=== PATIENT | male | born 1955 ===

== ENCOUNTER 2025-04-10 16:06 | Inpatient (IN) | payer OTHER, MEDICARE ==
[~2025-04-10] VITALS: Ht 170.2 cm; Wt 59.0 kg
[2025-04-10] MEDS ORDERED: MethylPREDNISolone Sod Succ 125 MG Vial IV ONE (16:10)
[2025-04-10] MEDS ORDERED: Albuterol 2.5 MG/3 ML VIAL INH SCH (16:10)
[2025-04-10 16:22] LABS: BASOPHILS ABSOLUTE AUTO 0.08 K/mm3 (0.00-0.23); BASOPHILS PERCENT AUTO 1 % (0-2); EOSINOPHILS PERCENT AUTO 0 % (0-6); Hematocrit 44.7 % (37.0-53.0); Hemoglobin 13.9 g/dL (13.5-17.5); IMMATURE GRAN ABSOLUTE AUTO 0.04 K/mm3 (0.00-0.10); IMMATURE GRAN PERCENT AUTO 0 % (0-1); LYMPHOCYTES ABSOLUTE AUTO 1.21 K/mm3 (0.84-5.20); LYMPHOCYTES PERCENT AUTO 10 % (21-46); MONOCYTES ABSOLUTE AUTO 0.84 K/mm3 (0.16-1.47); MONOCYTES PERCENT AUTO 7 % (4-13); Mean Corpuscular HGB 29.2 pg (26.0-34.0); Mean Corpuscular HGB Conc 31.1 g/dL (31.5-36.5); Mean Corpuscular Volume 94 fL (80-100); Mean Platelet Volume 9.6 fL (9.1-12.4); NEUTROPHILS ABSOLUTE AUTO 9.55 K/mm3 (1.96-9.15); NEUTROPHILS PERCENT AUTO 82 % (41-73); Platelet Count 234 K/mm3 (150-400); RDW Coefficient Variation 12.2 % (11.7-14.2); RDW Standard Deviation 42.3 fL (35.1-46.3); Red Blood Cell Count 4.76 M/mm3 (4.30-5.90); White Blood Cell Count 11.72 K/mm3 (4.00-11.30)
[2025-04-10] MEDS ORDERED: NS 1,000 ML IV ONE (16:32)
[2025-04-10] MEDS ORDERED: NS 1,000 ML IV SCH (16:35)
[2025-04-10 17:44] LABS: Base Excess Venous 8.2 mmol/L; Bicarbonate Venous 28.2 mmol/L (24.0-30.0); PCO2 Venous 98.6 mmHg (38-42); pH Blood Venous 7.18 (7.34-7.37)
[2025-04-10 19:00] LABS: Albumin, Blood 3.7 g/dL (3.4-5.0); Bilirubin, Total 0.4 mg/dL (0.1-1.0); Bun/Creatinine Ratio 28.2 (12.0-20.0); Calcium, Blood 8.5 mg/dL (8.5-10.1); Creatinine, Blood 1.03 mg/dL (0.60-1.20); Globulin, Blood 3.6 g/dL (2.2-4.0); Potassium, Blood 4.7 mmol/L (3.5-5.5); Total Protein, Blood 7.3 g/dL (6.4-8.2)
[2025-04-10] MEDS ORDERED: Albuterol 2.5 MG/3 ML VIAL INH PRN (19:00)
[2025-04-10] MEDS ORDERED: Ipratropium/Albuterol SulF 2.5-0.5MG/3 ML Amp INH SCH (19:00)
[2025-04-10] MEDS ORDERED: Ondansetron HCl 2 MG / ML 2ML Vial IV PRN (19:00)
[2025-04-10] MEDS ORDERED: Azithromycin 500 MG in NS 250 ML IV SCH (20:00)
[2025-04-10 20:18] LABS: Base Excess Venous 12.1 mmol/L; Bicarbonate Venous 31.6 mmol/L (24.0-30.0); PCO2 Venous 79.5 mmHg (38-42)
[2025-04-10 21:53] VITALS: BP 100/84
[2025-04-10 23:44] VITALS: BP 95/68
[2025-04-11] MEDS ORDERED: MethylPREDNISolone Sod Succ 125 MG Vial IV SCH
[2025-04-11 04:14] LABS: Base Excess Venous 11.9 mmol/L; Bicarbonate Venous 33.1 mmol/L (24.0-30.0); PCO2 Venous 62.8 mmHg (38-42); pH Blood Venous 7.38 (7.34-7.37)
[2025-04-11 04:41] LABS: Hematocrit 42.9 % (37.0-53.0); Hemoglobin 13.4 g/dL (13.5-17.5); Mean Corpuscular HGB 29.1 pg (26.0-34.0); Mean Corpuscular HGB Conc 31.2 g/dL (31.5-36.5); Mean Corpuscular Volume 93 fL (80-100); Platelet Count 199 K/mm3 (150-400); RDW Coefficient Variation 12.5 % (11.7-14.2); RDW Standard Deviation 42.8 fL (35.1-46.3); White Blood Cell Count 4.82 K/mm3 (4.00-11.30)
[2025-04-11 05:00] VITALS: BP 135/95
--- NOTE | 2025-04-11 06:34 | NUR ---
SHIFT SUMMARY: PATIENT ARRIVED FROM THE ED VIA STRETCHER AT 2100. PATIENT WAS TRAVELING FROM [place] WHEN HE RAN OUT OF O2 AND PASSED OUT. SLOWLY CAME TO A STOP OFF THE ROAD, NO TRAUMA RESPONSE ACTIVATED. THE PATIENT ARRIVED IN THE UNIT ON BIPAP TO HELP CORRECT THE CO2. DX IS COPD EXACERBATION. PATIENT IS ALERT AND ORIENTED, NO COMPLAINTS OF PAIN AND NEUROMUSCULARLY INTACT TO ALL 4 EXTREMITIES. USES A SCOOTER TO GET AROUND OUTSIDE OF THE HOUSE BUT IS INDEPENDENT FOR SHORT DISTANCES. -JVD, NSR ON MONITOR WITH A HR RANGE OF 70-90, BP WNL. 2/2 PULSES, BRISK CR. CLUBBING ON FINGERNAILS. AFEBRILE. ON BIPAP AT 30%, MOVED TO 3 LPM NC FOR A BREAK BECAUSE THE PATIENT KEPT ATTEMPTING TO REMOVE THE MASK DUE TO ANXIETY. EDUCATION PROVIDED. MOVED BACK TO BIPAP AFTER A 1.5 HOUR BREAK, NOTED TO BE DIFFICULT TO WAKE UP. HOWEVER ONCE THE PATIENT WAS AWAKE, HE DID BECOME AOX4 AGAIN. EQUAL RISE AND FALL OF THE CHEST. CLEAR OVER DIMINISHED LS. ABDOMEN IS SNT, ACTIVE BT'S, AND CONTINENT OF BOWEL AND BLADDER. SKIN IS INTACT AND BLANCHABLE. PIV X1 INTACT AND PATENT. REPORT GIVEN TO DAY SHIFT RN.
[2025-04-11 07:47] VITALS: BP 119/86
[2025-04-11] MEDS ORDERED: Enoxaparin 40 MG/0.4 ML SYR SC SCH (09:00)
[2025-04-11] MEDS ORDERED: Aspirin 81 MG Chew PO SCH (09:00)
[2025-04-11] MEDS ORDERED: Isosorbide Mononitrate 30 MG TABCR PO SCH (09:00)
[2025-04-11 09:09] VITALS: BP 99/73
[2025-04-11] MEDS ORDERED: IPRAT-ALBUT 0.5-3 ML INH (09:30)
[2025-04-11] MEDS ORDERED: BUDE.25 INH (09:31)
[2025-04-11] MEDS ORDERED: Crestor40 MG PO (09:32)
[2025-04-11] MEDS ORDERED: Isosorbide Mono30 MG PO (09:32)
[2025-04-11] MEDS ORDERED: METO25ER PO (09:33)
--- NOTE | 2025-04-11 09:35 | NUR ---
Pt awake, alert, and oriented x 4. Awakened easily at time of bedside report while on bipap. At this time taken off of bipap for conversation with hospitalist and clarification on home medications. Home med list completed. The pt states that he was using his concentrator while driving, as he always does, and that it was working fine. States he always keeps it fully charged and always uses it while away from home. He says that he was prescribed a CPAP in the past but never uses it because he has such anxiety and intolerance of the mask. States his spo2 at home is usually 88-90%.
--- NOTE | 2025-04-11 10:08 | NUR ---
Spo2 dropped to 82-84% while sitting up eating breakfast. Encouraged pt to slow down and take breaths in between swallows to recover his oxygen. He is wearing 2 l/min.
[2025-04-11 10:59] VITALS: BP 106/67
[2025-04-11] MEDS ORDERED: Budesonide 0.25 MG / 2 ML RESP INH SCH (13:55)
[2025-04-11] MEDS ORDERED: Metoprolol Succinate 25 MG TABCR PO SCH (14:30)
--- NOTE | 2025-04-11 14:47 | NUR ---
Call to Dr. Gleason regarding sinus tachycardia noted by polysomnographic technologist. Pt was bradycardic this morning, briefly before awakening. Pt has been tolerating off of the bipap since mid morning, up in room for toileting with dypsnea, which he says is baseline for him. STates he has dyspnea with eating at baseline as well, so he cannot tolerate a large meal in one sitting. New orders received for his home Toprol XL, overnight oximetry as well as VBG in the morning.
[2025-04-11 16:31] VITALS: BP 109/75
--- NOTE | 2025-04-11 16:58 | NUR ---
Michele has been doing well, walking to and from the bathroom on his home dose of oxygen. It seems that his dypsnea with activity today has been about his baseline. Good appetite, toileting as usual. Plan is for overnight oximetry without bipap, then VBG in the morning. Pt was educated on the plan of care.
[2025-04-11 19:38] VITALS: BP 102/75
--- NOTE | 2025-04-11 20:26 | NUR ---
ASSUMED CARE OF THIS PT AT 1900 PT IS A+O X4 ABLE TO MAKE NEEDS KNOWN. SITTING UP IN BED WITH LEGS CROSSED, NC IN PLACE DELIVERING 3L SATTING AT 90% AND ABOVE ON CONTINUS PULSE OX. PATIENT IS TO HAVE SLEEP STUDY DONE TONIGHT W/OUT BIPAP ON. PT DENIES NEEDS AT THIS TIME.
[2025-04-12 00:09] VITALS: BP 128/90
[2025-04-12 03:08] VITALS: BP 100/62
[2025-04-12 04:55] LABS: Base Excess Venous 18.7 mmol/L; Bicarbonate Venous 39.2 mmol/L (24.0-30.0); PCO2 Venous 65.6 mmHg (38-42); pH Blood Venous 7.43 (7.34-7.37)
--- NOTE | 2025-04-12 05:46 | NUR ---
shift summary PT REMAINS A+O X4, ABLE TO MAKE NEEDS KNOWN. TRANSFERS SELF W/ FWW TO BR STAFF ASSIT WITH LINES. SLEEP STUDY LAST NIGHT WITH NO PERIODS OF DESATURATION. VBG THIS MORNING (SEE LABS). IN NO ACUTE DISTRESS, SLEEPING COMFRTABLE THIS AM. BED IN LOWEST POSTION CALL LIGHT IN REACH, WILL CONTINUE WITH PLAN OF CARE AND REPORT TO ONCOMING RN.
[2025-04-12 10:06] VITALS: BP 106/78
[2025-04-12] MEDS ORDERED: ENOX40I SC (12:49)
[2025-04-12] MEDS ORDERED: DOXY100 PO (12:49)
[2025-04-12] MEDS ORDERED: PRED20 PO (12:50)
--- NOTE | 2025-04-12 13:17 | NUR ---
DISCHARGE SUMMARY ADMITTED FOR SYNCOPE, HE HAS HAD NO EPISODES OF SYNCOPE TODAY, DENIES SOB, ON 2L O2 AND HAS A PORTABLE O2 MACHINE FROM HOME. DISCUSSED DISCHARGE INFORMATION INCLUDING HOME CARE, MEDICATIONS, AND FOLLOW UP APPOINTMENTS. PT STATES HE HAS A CARDIOLOGY APPOINTMENT ON 04/15 FR AN ECHO AND 04/17 FOR A STRESS TEST AND WAS ENCOURAGED TO KEEP THOSE APPOINTMENTS. IV ACCESS REMOVED, PT ESCORTED OUT TO [facility] TO GO HOME.
== END 2025-04-12 13:17 | disposition home or self-care (01) | DRG 189 ==
LOC: ER 16:06 → PCU 16:07
PROVIDERS: Emergency Medicine; Internal Medicine; Nurse Practitioner Acute Care; ADMIT Internal Medicine
PROC: 5A09457 Assistance with Respiratory Ventilation, 24-96 Consecutive Hours, Continuous Positive Airway Pressure (ICD-10-PCS; principal; 2025-04-10)
DX: J96.21 Acute and chronic respiratory failure with hypoxia (principal); J44.1 Chronic obstructive pulmonary disease with (acute) exacerbation; G93.49 Other encephalopathy; G47.33 Obstructive sleep apnea (adult) (pediatric); J96.22 Acute and chronic respiratory failure with hypercapnia; Z71.81 Spiritual or religious counseling; Z66 Do not resuscitate; I50.9 Heart failure, unspecified; J43.9 Emphysema, unspecified; R00.1 Bradycardia, unspecified; Z87.891 Personal history of nicotine dependence
CPT/HCPCS: 36415; 70450; 71045; 80053; 82803; 82947; 83880; 84484; 85025; 85027; 93005; 93010; 94640; 94644; 94660; 94664; 94762; 96361; 96365; 96366; 96372; 96375; 96376; 99291-25; A9270; G0378; J0456; J1650; J2919; J7030; J7050